=== PATIENT | female | born 1975 | race American Indian/Alaskan Native ===

== ENCOUNTER 2018-02-17 00:50 | Emergency (ER) | payer MEDICARE, OTHER ==
[2018-02-17 05:20] VITALS: BP 105/68; PULSE 64; RESP 14; TEMP 98.1; O2SAT 99
--- NOTE | 2018-02-17 05:23 | C.PDOC ---
History Of Present Illness 42 year old female presents to the ER requesting a place to spend the night. Patient states she is homeless and does not want to sleep on the floor of the homeless detention. Denies any complaints at this time. Time Seen by Provider: 02/17/18 01:53 Chief Complaint (Nursing): Medical Clearance History Per: Patient History/Exam Limitations: no limitations Onset/Duration Of Symptoms: Hrs Current Symptoms Are (Timing): Still Present Recent travel outside of the [place]: No Past Medical History Reviewed: Historical Data, Nursing Documentation, Vital Signs Vital Signs: Last Vital Signs Temp 98.1 F 02/17/18 05:19 Pulse 64 02/17/18 05:19 Resp 14 02/17/18 05:19 BP 105/68 02/17/18 05:19 Pulse Ox 99 02/17/18 05:19 - Medical History PMH: Anxiety, Asthma, Bronchitis, Depression, Schizophrenia Denies: Diabetes, Hepatitis, HIV, HTN, Seizures, Sexually Transmitted Disease Family History: States: Unknown Family Hx - Social History Hx Alcohol Use: Yes Hx Substance Use: No - Immunization History Hx Tetanus Toxoid Vaccination: No Hx Influenza Vaccination: Yes Hx Pneumococcal Vaccination: No Review Of Systems Constitutional: Negative for: Fever, Chills Cardiovascular: Negative for: Chest Pain, Palpitations Respiratory: Negative for: Cough, Shortness of Breath Gastrointestinal: Negative for: Nausea, Vomiting Physical Exam - Physical Exam Appears: Non-toxic Skin: Normal Color, Warm, Dry, No Rash Head: Atraumatic, Normacephalic Eye(s): bilateral: Normal Inspection Oral Mucosa: Moist Neck: Normal ROM Chest: Symmetrical, No Tenderness Cardiovascular: Rhythm Regular Respiratory: Normal Breath Sounds, No Rales, No Rhonchi, No Wheezing Gastrointestinal/Abdominal: Soft, No Tenderness Back: No CVA Tenderness Extremity: Normal ROM (x4), No Swelling Neurological/Psych: Oriented x3, Normal Speech Gait: Steady ED Course And Treatment O2 Sat by Pulse Oximetry: 99 (Room air) Pulse Ox Interpretation: Normal Medical Decision Making Medical Decision Making: Patient is resting comfortably in the ER in no acute distress, vitals are stable, stable for discharge. Disposition - Disposition Disposition: HOME/ ROUTINE Disposition Time: 05:10 Condition: STABLE Additional Instructions: Return if worsened. Instructions: Knee Pain Forms: [place] (Bengali) - POA Present On Arrival: None - Clinical Impression Clinical Impression: Medical assessment, Homelessness, Chronic leg pain - PA / [employer] / Resident Statement MD/DO has reviewed & agrees with the documentation as recorded. - Scribe Statement The provider has reviewed the documentation as recorded by the Scribjairon Townsend All medical record entries made by the Asaibjairon were at my direction and personally dictated by me. I have reviewed the chart and agree that the record accurately reflects my personal performance of the history, physical exam, medical decision making, and the department course for this patient. I have also personally directed, reviewed, and agree with the discharge instructions and disposition.
== END 2018-02-17 06:05 | disposition home or self-care (01) ==
LOC: C.ER 00:50
DX: G89.29 Other chronic pain (principal); M79.606 Pain in leg, unspecified; Z59.0 Homelessness; F20.9 Schizophrenia, unspecified